=== PATIENT | male | born 1985 | race Caucasian/White ===

== ENCOUNTER 2020-02-07 15:24 | Emergency (ER) | payer OTHER, SELFPAY ==
[2020-02-07 15:36] VITALS: BP 155/74; PULSE 83; RESP 20; TEMP 37; O2SAT 100
--- NOTE | 2020-02-07 15:42 | ED.SKABFB ---
HPI - Skin/Abscess/Foreign Bdy General Chief complaint: Skin/Abscess/Foreign Body Stated complaint: Rash Time Seen by Provider: 02/07/20 15:42 Source: patient and RN notes reviewed History of Present Illness HPI narrative: Patient is a 34-year-old male who presents the urgent care with complaints of possible poison fanny to the right arm. Patient states he noticed it last Sunday and he has been putting triamcinolone cream on the area as well as using scrub [id number]. Patient denies of any spread of the rash. States it is very itchy and is became pustular. No other acute complaints. No acute distress noted. Patient read the plan of care. Related Data Allergies Allergy/AdvReac Type Severity Reaction Status Date / Time No Known Allergies Allergy Unverified 02/07/20 15:31 Review of Systems Review of Systems: Narrative: CONSTITUTIONAL: Denies fever, chills, or sweats. EYES: Denies visual changes, redness, or discharge. ENT: Denies rhinorrhea, congestion, sore throat, or otalgia. CARDIOVASCULAR: Denies chest pain, palpitations, or edema. RESPIRATORY: Denies cough or dyspnea. GASTROINTESTINAL: Denies abdominal pain, nausea, vomiting, or diarrhea. GENITOURINARY: Denies dysuria or hematuria. SKIN: Reports of itchy red rash to the right arm MUSCULOSKELETAL: Denies back pain, joint pain, or myalgia. NEUROLOGIC: Denies headache, numbness, or weakness. All other systems reviewed are negative, except as documented in HPI. PMFSH Comments At the time of my signature, I reviewed and agree with the nursing past medical, surgical, social, and family history. There is no relevant family history pertinent to the patient complaint. Exam Narrative: Exam Narrative: GENERAL: This is a well-nourished, well-developed patient, in no apparent distress. HEAD: normocephalic, atraumatic. EYES: PERRL. Sclera clear/white. Vision is grossly intact. EARS: External ears normal NOSE: External nose normal with no obvious nasal discharge, nares without redness, no rhinorrhea. THROAT: Mucous membranes moist, posterior pharynx clear. NECK: Neck supple SKIN: Pustular pruritic erythemic dermatitis noted to the right antecubital fossa NEURO: awake, alert, and oriented to person, place and time. There were no obvious focal neurologic abnormalities. EXTREMITIES: No clubbing, cyanosis, or edema. Course Vital Signs Vital signs: Vital Signs Temperature 98.6 F 02/07/20 15:36 Pulse Rate 83 02/07/20 15:36 Respiratory Rate 20 02/07/20 15:36 Blood Pressure 155/74 H 02/07/20 15:36 Pulse Oximetry 100 02/07/20 15:36 Temperature 98.6 F 02/07/20 15:36 Pulse Rate 83 02/07/20 15:36 Respiratory Rate 20 02/07/20 15:36 Blood Pressure 155/74 H 02/07/20 15:36 Pulse Oximetry 100 02/07/20 15:36 Reviewed?patient is informed that they may have pre-hypertension or hypertension based on a blood pressure reading in the department. I recommend the patient call the primary care provider listed on their discharge instructions or a physician of their choice this week to arrange follow-up for further evaluation of possible pre-hypertension or hypertension. MDM - Skin/Abscess/Foreign Bdy MDM Narrative Medical decision making narrative: Advised the patient to continue using tech new scrub [id number]. Complete steroid regimen as prescribed. Use [id number] antihistamine such as Claritin or Benadryl as needed for itching. Do not pour any gasoline on the area. May dry it out with plain payable processor. Follow-up with your PCP within 2 to 5 days or for worsening symptoms or failure to improve. Differential Diagnosis Differential diagnosis: Likely abscess of skin or subcutaneous tissue, urticaria, cellulitis, insect bites and impetigo Critical Care Time Critical Care Time Critical Care Time: No Discharge Plan Discharge Clinical Impression: Rhus dermatitis Patient Disposition: Home, Self-Care Condition: Stable Instructions: Antibiotic F
== END 2020-02-07 15:55 | disposition home or self-care (01) ==
PROVIDERS: Emergency Provider Nurse Practitioner Family
DX: L23.7 Allergic contact dermatitis due to plants, except food (principal)
CPT/HCPCS: 99213; G0463

== ENCOUNTER 2023-08-30 19:42 | Emergency (ER) | payer BC, MEDICAID, SELFPAY ==
[2023-08-30 19:46] VITALS: BP 160/98; PULSE 93; RESP 18; TEMP 36.7; O2SAT 97
--- NOTE | 2023-08-30 19:59 | ED.EXTPRO ---
HPI - Extremity Problem General Chief complaint: Extremity Problem,Nontraumatic Stated complaint: LEFT FOOT PAIN Time Seen by Provider: 08/30/23 19:59 Source: patient and family Mode of arrival: ambulatory Limitations: no limitations History of Present Illness HPI Narrative: this is a 38-year-old male pain in his left large toe with redness erythema and tenderness with no known injury has good range of motion although limited secondary to pain and inflammation. No other symptoms, no fever chills no nausea vomiting abdominal pain no chest pain. MD Complaint: extremity pain Onset (ago): day(s) Location: left Severity scale (1-10): 8 Quality: aching Related Data Allergies Allergy/AdvReac Type Severity Reaction Status Date / Time No Known Allergies Allergy Verified 08/30/23 19:43 Review of Systems Review of Systems: All systems reviewed & are unremarkable except as noted in HPI and below PMFSH Past Medical History Medical History Patient denies medical problems Exam Const: General: healthy appearing and no acute distress Nutritional Appearance: well nourished Orientation/consciousness: patient oriented x3 Limitations: no limitations Neck: Neck: normal visual inspection and no lymphadenopathy Resp: Effort & Inspection: normal respiratory effort Auscultation: clear to auscultation bilaterally Cardio: Rate: regular rate Rhythm: regular rhythm GI: GI Palp: Yes Soft to palpation Auscultation: normal bowel sounds Skin: General skin exam: normal color Other: red warm tender large left toe Extrem: Other: erythematous large red left toe Course Course Emergency Course: patient with a red warm and tender left large toe will receive a dose of 60mg IM Toradol. Vital Signs Vital signs: Vital Signs Temperature 36.7 C 08/30/23 19:46 Pulse Rate 93 08/30/23 19:46 Respiratory Rate 18 08/30/23 19:46 Blood Pressure 160/98 H 08/30/23 19:46 Pulse Oximetry 97 08/30/23 19:46 Oxygen Delivery Room Air 08/30/23 19:46 Temperature 36.7 C 08/30/23 19:46 Pulse Rate 93 08/30/23 19:46 Respiratory Rate 18 08/30/23 19:46 Blood Pressure 160/98 H 08/30/23 19:46 Pulse Oximetry 97 08/30/23 19:46 Oxygen Delivery Room Air 08/30/23 19:46 Critical Care Time Critical Care Time Critical Care Time: No Discharge Plan Discharge Clinical Impression: Gout Patient Disposition: Home, Self-Care Condition: Stable Instructions: Gout (ED), Antibiotic Form Additional Instructions: take medication as prescribed and follow with primary within 1 week further evaluation treatment. Prescriptions: New indomethacin 50 mg capsule 50 mg PO TID 5 Days Qty: 15 0RF Rx Instructions: administer with food or milk Follow-up/Referrals: Kalee,GILBERT Valverde [Primary Care Provider] - Time of Disposition: 20:03
[2023-08-30] MEDS: KETOROLAC (*BKC) 60 MG/2 ML VIAL IM (20:07)
== END 2023-08-30 20:35 | disposition home or self-care (01) ==
LOC: CHSED 20:09
PROVIDERS: Emergency Provider Emergency Medicine; PCP Physician Assistant
DX: M10.9 Gout, unspecified (principal)
CPT/HCPCS: 96372; 99283; J1885